=== PATIENT | female | born 1950 | race Caucasian/White ===

== ENCOUNTER 2022-01-12 14:13 | Emergency (ER) | payer MEDICARE ==
[~2022-01-12 14:13] MED LIST: CITRACAL + D E1 EACH PO; DESLORATADINE5 MG PO; EXCEDRIN EXTRA1 EACH PO; FLONASE PO; OCUVITE ADULT1 EACH PO; SINGULAIR10 MG PO; SYNTHROID PO; VIT D3 PO
[2022-01-12 16:19] LABS: BASOPHIL 0.3 % (0-2); EOSINOPHIL 0 % (0-7); HCT 45.5 % (37.0-47.0); HGB 14.6 g/dl (12.5-16.0); LYMPHOCYTE 1.1 % (15-48); MCH 28.9 pg (25.0-31.0); MCHC 32.1 g/dL (32.0-36.0); MCV 90.1 fL (78.0-100.0); MONOCYTE 2.8 % (0-12); MPV 9.2 fL (6.0-9.5); NRBC 0; PLT 218 K/uL (150-400); RBC 5.05 M/uL (4.20-5.40); RDW 13.2 % (11.5-14.0); WBC 7.2 K/uL (4.0-10.5)
[2022-01-12 16:20] LABS: BILIRUBIN NEGATIVE (NEGATIVE); BLOOD 2+ Ery/uL (NEGATIVE); CLARITY HAZY (CLEAR); COLOR YELLOW (YELLOW); GLUCOSE (U) NORMAL (NORMAL); LEUKOCYTES NEGATIVE Leu/uL (NEGATIVE); NITRITE NEGATIVE (NEGATIVE); PROTEIN NEGATIVE (NEGATIVE); UROBILINOGEN 0.2 mg/dL (0.2-1.0)
[2022-01-12 16:20] LABS: NEUTROPHIL 95.7 % (41-80)
[2022-01-12 16:26] LABS: URINARY WBC RARE
[2022-01-12 16:27] LABS: BACTERIA TRACE
[2022-01-12 16:32] LABS: ALBUMIN 4.2 g/dL (3.4-5.0); BILIRUBIN - TOTAL 0.6 mg/dL (0.2-1.0); BUN/CREAT RATIO (CALC) 26.5 RATIO; CREATININE 0.83 mg/dL (0.51-0.95); GLOBULIN (CALCULATION) 3.4 g/dL; POTASSIUM 3.7 mmol/L (3.5-5.1); TOTAL PROTEIN 7.6 g/dL (6.4-8.2)
[2022-01-12 19:21] LABS: CORONAVIRUS 2019 SARS-COV-2 NEGATIVE (NEGATIVE); INFLUENZA A NAA NEGATIVE (NEGATIVE)
[2022-01-12] MEDS ORDERED: NORCO 5-325 TA1 EACH PO (21:29)
[2022-01-12] MEDS ORDERED: METRONIDAZOLE500 MG PO (21:29)
[2022-01-12] MEDS ORDERED: ONDANSETRON ODT4 MG PO (21:29)
[2022-01-12] MEDS ORDERED: CIPRO500 MG PO (21:29)
== END 2022-01-12 21:40 | disposition home or self-care (01) ==
LOC: FER 14:13
PROVIDERS: Emergency Medicine; Nurse Practitioner Family
DX: K52.9 Noninfective gastroenteritis and colitis, unspecified (principal); Z20.822 Contact with and (suspected) exposure to COVID-19
CPT/HCPCS: 36415; 80053; 81001; 82150; 83690; 85025; J1170; J1885; J2405; J7030; Q9967; U0002